=== PATIENT | female | born 1925 | race Caucasian/White ===

== ENCOUNTER 2016-09-17 00:33 | Inpatient (IN) | payer OTHER ==
[~2016-09-17] VITALS: Ht 157.5 cm; Wt 64.9 kg
--- NOTE | ~2016-09-17 | DEA ---
[facility] [place] [address] [place] [address] SUMMARY Name: LETA CORDOBA Room #: 453-P [facility] IN M.R.#: [id number] Admission: 09/17/16 Attend Phys: Stewart Branham DO Discharge: 09/20/16 Date of : [birth year] Report #: [id number] THIS REPORT FOR: //name// CC: Stewart Reynolds MD DATE OF SERVICE: 09/20/2016 DATE OF ADMISSION: 09/17/2016. DATE OF : 09/20/2016. SIGNIFICANT FINDINGS AND TREATMENT RENDERED: The patient is an 89-year-old white female who was admitted through the emergency department with acute respiratory failure. She had chronic pleural effusions and COPD. She had chronic atrial fibrillation. She did have leukocytosis on this admission, some of which may have been associated with steroids. She did have a thoracentesis with right-sided chest tube placement, but had bibasilar infiltrates, atelectasis and pleural effusions despite this intervention and was poorly responsive toward the end of her life. She did start to improve. Steroids were initially started to taper, but she did on 09/20/2016. 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 OPERATIONS AND PROCEDURES: Thoracentesis with chest tube placement. CONSULTATIONS: With Dr. Jurado and Dr. Reynolds. Appropriate arrangements were made for disposition of the remains and condolences to the family. <ELECTRONICALLY SIGNED> By: Jason Hanks MD, NAVJOT, FACEP 11/14/16 [id number] [id number] Jason Hanks MD, NAVJOT, FACEP /nt
--- NOTE | ~2016-09-17 | H ---
[facility] [place] [address] HISTORY AND PHYSICAL Name: LETA CORDOBA Room #: 453-P [facility] IN M.R.#: [id number] Admission: 09/17/16 Attend Phys: Stewart Branham DO Discharge: 09/20/16 Date of : [birth year] Report #: [id number] THIS REPORT FOR: //name// CC: Stewart Stuart MD DATE OF SERVICE: 09/17/2016 ROOM NUMBER: #453. HISTORY OF PRESENT ILLNESS: This is an 89-year-old white female, who was admitted here on transfer from the emergency room at [facility], where she was sent because of increasing somnolence and shortness of breath. The patient had gone out to the office of Dr. Jurado, her dope pourer, two days ago and when she returned, she started seeming more somnolent. Yesterday, she was out of bed, but was not quite herself, seemed more short of breath and less responsive. It is worse in the last night and paramedics were called. Thought she might have been having a stroke, so presented to [facility] ER, where unfortunately, they did not have any bed opens for admission. At [facility], her pH was 7.24 and her pCO2 was 70. She was treated with bronchodilator therapy and steroids, and she had 1000 mL of pleural fluid removed from her right PleurX catheter, which she has had since last month. Since transfer here, she is more alert and awake according to her daughters. There was no history of nausea or vomiting. There is no dysuria, chest pain, arthritic pain, rash, falls or dysphagia. PAST MEDICAL HISTORY: She was hospitalized past year in July for atrial flutter, pneumonia, and pulmonary edema. She has had previous congestive heart failure, chronic atrial fibrillation, type 2 diabetes, peripheral vascular disease, pulmonary hypertension, aortic stenosis, normal pressure hydrocephalus, suspected, but spinal tap was never done, carotid stenosis, pulmonary emboli, vascular stents in her legs. Previous blood loss anemia, kidney stones with lithotripsy in 1984. MEDICATIONS ON ADMISSION: Nexium 40 mg daily, Atrovent HFA 2 puffs q.i.d., ProAir HFA 2 puffs q.i.d., Brovana 15 mcg b.i.d., Xopenex q. 6 hours p.r.n., Eliquis 5 mg b.i.d., amiodarone 100 mg daily, fish oil 1000 mg b.i.d., Verapamil SR 240 mg daily, zinc 50 mg daily, calcium with vitamin D twice a day. ALLERGIES: None definite. Even though chart says PENICILLIN, daughter has denied this. on admission, Lasix 20 mg twice a week, budesonide 0.5 mg b.i.d., b.i.d., Singulair 10 mg daily, guaifenesin 600 mg b.i.d., metformin [address] [address] HISTORY AND PHYSICAL Name: LETA CORDOBA Room #: 453-P [facility] IN M.R.#: [id number] Admission: 09/17/16 Attend Phys: Stewart Branham DO Discharge: 09/20/16 Date of : [birth year] Report #: [id number] b.i.d., ascorbic acid 1000 mg b.i.d., Krill oil 1 daily, red yeast rice 2 tablets b.i.d., Coenzyme Q 200 mg b.i.d., chlorella 200 mg 4 tablets q.i.d. REVIEW OF SYSTEMS: She lives with her daughter. She is able to carry out walks with a walker. Usually has good appetite, and in fact, ate a good breakfast earlier today. She sees Dr. Cal Stuart regularly. It was his recommendation to put in the PleurX catheter, and the daughter has been draining out 1000 mL of urine, anywhere from every other day to every 5 days. PHYSICAL EXAMINATION: GENERAL: An elderly white female with her eye is open, responding to me. VITAL SIGNS: BP 149/90, pulse 95, respiration 18, temp afebrile. HEAD: No rash or trauma. EARS, NOSE, AND THROAT: There is no lesions. EYES: No icterus. NECK: Supple. LUNGS: Decreased breath sounds in the right base. No wheezes or rhonchi. HEART: Rhythm irregular, but rate controlled. ABDOMEN: Soft and nontender. EXTREMITIES: Puffy without significant edema. No cellulitis. NEUROLOGIC: She is alert and responsive. Complete mental status exam is not taken at this time. There were no lateralized deficits. LABORATORY DATA: Portable chest x-ray shows right basilar infiltrate and small effusion and slightly worsening diffuse prominence of the interstitium, probably chronic changes. Urinalysis is not back. IMPRESSION: 1. Increasing somnolence, hypercarbia, and respiratory failure. 2. Extensive lung disease. 3. Pleural effusion. 4. Chronic atrial fibrillation. 5. Possible normal pressure hydrocephalus. 6. Type 2 diabetes. PLAN: Low dose IV steroids. Continue outpatient regime. Ask Cardiology and Pulmonary to see for recommendations. Follow up chest x-ray, low dose IV fluids initially. Physical therapy evaluation. PROGNOSIS: Guarded. <ELECTRONICALLY SIGNED> By: Stewart Branham DO 09/25/16 1604 [id number] [id number] Stewart Branham DO /nt
--- NOTE | ~2016-09-17 | HC ---
[facility] [place] [address] CONSULTATION Name: LETA CORDOBA Room #: 453-P [facility] IN M.R.#: [id number] Admission: 09/17/16 Attend Phys: Stewart Branham DO Discharge: 09/20/16 Date of : [birth year] Report #: [id number] THIS REPORT FOR: //name// CC: Stewart Hanks DATE OF SERVICE: 09/17/2016 PRIMARY CARE PHYSICIAN: Jason Hanks M.D. REFERRAL PHYSICIAN: Stewart Branham M.D. REASON FOR REFERRAL: Acute respiratory distress. HISTORY OF PRESENT ILLNESS: The patient is an 89-year-old white female who is well known to the physician, presents with increasing hypersomnolence and dyspnea. A pulmonary consultation was requested. The patient has known severe COPD. She is normally on nebulized Pulmicort and Brovana. She has chronic hypoxic respiratory failure requiring 3 liters of O2. She was last hospitalized in [facility] on May 2016. The patient was in her usual state of health until a few days ago. She had developed progressive hypersomnolence. She was felt to have altered mental status along with increasing dyspnea. She was brought to [facility] Emergency Room. [facility] was full. She was transferred to [facility] for further evaluation. At [facility] her arterial blood gas revealed pH 7.24, pCO2 of 70. Currently, she is more awake, complained of back pain. Otherwise, she denies any chest pain, productive cough. There is no recent febrile illness, nausea, vomiting or diarrhea. PAST MEDICAL HISTORY: Notable for COPD, severe impairment, chronic hypoxic respiratory failure requiring 3 liters of O2, obstructive sleep apnea on BiPAP, peripheral vascular disease, nephrolithiasis, diabetes mellitus type 2, allergic rhinitis. MEDICATIONS: Reviewed. ALLERGIES: PENICILLIN. Reactions not specified. FAMILY HISTORY: Noncontributory. SOCIAL HISTORY: The patient has smoked, but quit many years ago. Currently, [facility] [address] [place] [address] CONSULTATION Name: LETA CORDOBA Room #: 453-P [facility] IN M.R.#: [id number] Admission: 09/17/16 Attend Phys: Stewart Branham, Discharge: 09/20/16 Date of : [birth year] Report #: [id number] she lives with her daughter who gives her 24 hour care. REVIEW OF SYSTEMS: As mentioned above, otherwise 10-point system review negative. PHYSICAL EXAMINATION: GENERAL: She is awake and alert in moderate distress due to pain and dyspnea. VITAL SIGNS: Temperature is 97 degrees Fahrenheit, pulse is 70, respiratory rate is 24, blood pressure 127/70 mmHg, saturation 92% on supplemental O2. HEENT: Normocephalic, atraumatic. NECK: Supple without any lymphadenopathy or thyromegaly. CHEST: Breath sounds are decreased bilaterally with mild expiratory wheezes. CARDIOVASCULAR: Heart sounds are distant. No obvious murmurs or gallop. ABDOMEN: Soft, nontender, no organomegaly or masses felt. GENITOURINARY: Deferred. RECTAL: Deferred. EXTREMITIES: No cyanosis, clubbing or edema. LABORATORY DATA: Chest x-ray shows chronic infiltrates involving the right base. Infiltrates appears to be more prominent on today's examination. Electrolytes are unremarkable except for potassium 5.3, creatinine is 1.1, hemoglobin is 11.0, WBC 12,000. IMPRESSION: 1. Progressive hypersomnolence and dyspnea in this 89-year-old white female probably secondary to exacerbation of chronic obstructive pulmonary disease. 2. Slightly increase in infiltrates, possible pneumonia. This would include possible aspiration. 3. Chronic obstructive pulmonary disease with exacerbation, severe impairment. 4. Chronic hypoxic respiratory failure patient is on 3 liters of O2 chronically. 5. Chronic infiltrates, but this has been followed in the past. 6. Permanent atrial fibrillation. 7. Progressive debility and weakness. 8. Chronic back pain due to osteoarthritis involving the lower back. RECOMMENDATION: We will start corticosteroids and bronchodilators along with broad spectrum antibiotics. Would try to keep saturation around 88-90% if possible. DVT and GI prophylaxis will be addressed. Thank you for this consultation. <ELECTRONICALLY SIGNED> By: Harvey Reynolds MD 09/22/16 1634 [id number] Harvey Reynolds MD /nt
[~2016-09-17 00:33] MED LIST: ABREVA2 GM TOP; ACCUCHECK; ACETAMINOPHEN325 M1 PO; ACTOS15 MG; ADULT LOW DOSE81 MG PO; ALBUTEROL2.5 MG/0.1 IH; ALBUTEROL2.5 MG/0.5 INH; ASPIRIN300 MG PO; ATIVAN0.5 MG PO; ATROVENT HFA14 GM INH; AVELOX 400 MG400 MG; BROVANA15 MCG/2 M IH; BROVANA15 MCG/2 M INH; BUDESONIDE0.5 MG/2 M IH; CAL MA PLUS PO; CALAN SR240 MG PO; CALCITRATE200 MG; CALCIUM CITRAT1 EAC7 PO; CHLORELLA PO; CLOTRIMAZOLE-BE30 M1 TOP; CO Q-10200 MG; COQ-10100 MG PO; COUMADIN 4 MG TA4 M1; DHEA25 MG; ELIQUIS5 MG PO; FISH OIL 1,001000 M2 PO; FISHOIL PO; GUAIFENESIN400 MG PO; K-DUR 20 MEQ T20 MEQ; LASIX 20 MG TAB20 MG; LASIX 20 MG TAB20 MG PO; LIPITOR10 MG PO; LUTEIN-ZEAXANT1 EACH PO; MAG DELAY64 MG; MEGARED OMEGA-1 EAC1 PO; METFORMIN HCL500 MG PO; MUCINEX600 MG; MULTI-VITAMIN1 EAC1; NAMENDA 5 MG TAB5 M1 PO; NEXIUM40 MG; NEXIUM40 MG PO; NOVOLOG100 UNIT/1 SQ; OMEGA-31000 MG; PACERONE 200 M200 M1 PO; PLAVIX 75 MG TA75 M1 PO; PRAVACHOL40 MG PO; PREDNISONE 5 MG5 M1 PO; PROAIR HFA8.5 GM PO; PROAIR RESPICL90 MCG INH; PROTANDIN; PROTONIX40 M1 PO; PROVENTIL IH; PROVENTIL17 G1 IH; PULMICORT0.5 MG/22 INH; RED YEAST RICE600 MG; RED YEAST RICE600 MG PO; RESPIMAT INH; SINGULAIR 10 MG10 M1 PO; SPIRIVA INH; TYLENOL325 MG PO; VITAMINC500 PO; XANAX 0.25 MG0.25 MG; XOPENEX 0.63 MG/3 M1 INH; ZINC CHELATE50 MG PO; ZOLOFT 50 MG TA50 M1; [UNRECOGNIZED DRUG - CODE]; [UNRECOGNIZED DRUG - OTHER] PO
[2016-09-17] MEDS ORDERED: AMIODARONE HCL100 MG PO (01:39)
[2016-09-17 02:21] VITALS: BP 155/65
[2016-09-17 03:24] VITALS: BP 164/58
[2016-09-17 08:10] VITALS: BP 149/90
[2016-09-17 12:30] VITALS: BP 145/54
[2016-09-17 16:00] VITALS: BP 148/89
[2016-09-17 20:00] VITALS: BP 139/37
[2016-09-17 22:46] LABS: CALCIUM 8.5 mg/dL (8.5-10.1); CREATININE 1.1 mg/dL (0.6-1.3); MAGNESIUM 1.6 mg/dL (1.8-2.4); POTASSIUM 5.3 mmol/L (3.5-5.1)
[2016-09-18 05:53] LABS: HEMATOCRIT 36.3 % (37.0-47.0); MCH 26.5 pg (26.0-34.0); MCHC 30.5 % (28.0-37.0); MCV 86.9 fL (80.0-100.0); PLATELET COUNT 527 thou/uL (150-400); RBC 4.17 mil/uL (4.20-5.00); RDW 17.3 % (10.5-14.5); WBC 12.6 thou/uL (4.0-11.0)
[2016-09-18 06:10] LABS: CALCIUM 9.1 mg/dL (8.5-10.1); CREATININE 1.1 mg/dL (0.6-1.3); POTASSIUM 5.4 mmol/L (3.5-5.1)
[2016-09-18 06:25] LABS: MANUAL DIFF YES
[2016-09-18 07:39] LABS: ABSOLUTE NEUTROPHILS 11.6 thou/uL (1.4-8.2); ANISOCYTOSIS 1+; TOTAL CELL COUNT 100
[2016-09-18 07:50] VITALS: BP 161/78
[2016-09-18 15:25] VITALS: BP 125/31
[2016-09-18 19:30] VITALS: BP 146/44
[2016-09-19 02:53] VITALS: BP 148/79
[2016-09-19 06:19] LABS: ABSOLUTE NEUTROPHILS 11.4 thou/uL (1.4-8.2); BASOPHILS 0.1 % (0.0-2.0); HEMATOCRIT 32.5 % (37.0-47.0); HEMOGLOBIN 9.9 gm/dL (12.0-15.0); LYMPHOCYTES 2.7 % (24.0-44.0); MCH 26.3 pg (26.0-34.0); MCHC 30.5 % (28.0-37.0); MCV 86.2 fL (80.0-100.0); MONOCYTES 1.5 % (1.0-8.0); POLYS 95.7 % (36.0-66.0); RBC 3.78 mil/uL (4.20-5.00); RDW 17.3 % (10.5-14.5); WBC 11.9 thou/uL (4.0-11.0)
[2016-09-19 06:22] LABS: PLATELET COUNT 444 thou/uL (150-400)
[2016-09-19 06:23] LABS: MANUAL DIFF NO
[2016-09-19 06:35] LABS: ALBUMIN 2.8 g/dL (3.4-5.0); CALCIUM 8.7 mg/dL (8.5-10.1); CREATININE 1.3 mg/dL (0.6-1.3); POTASSIUM 5.6 mmol/L (3.5-5.1); TOTAL BILIRUBIN 0.3 mg/dL (<0.1-1.0); TOTAL PROTEIN 6.1 g/dL (6.4-8.2)
[2016-09-19 08:00] VITALS: BP 158/55
[2016-09-19 17:25] VITALS: BP 153/47
[2016-09-20 03:36] VITALS: BP 158/76
[2016-09-20 08:00] VITALS: BP 153/90
[2016-09-20 15:07] LABS: AMIODARONE 1.9 ug/mL (1.0-2.5); DES-AMIODARONE 0.7 ug/mL (1.0-2.5)
[2016-09-20 15:54] VITALS: BP 146/52
== END 2016-09-20 18:20 | DRG 177 ==
LOC: 4W 00:33
PROVIDERS: Family Medicine; Internal Medicine; Internal Medicine Pulmonary Disease
PROC: 05HC33Z Insertion of Infusion Device into Left Basilic Vein, Percutaneous Approach (ICD-10-PCS; principal; 2016-09-19)
PROC: B54NZZA Ultrasonography of Left Upper Extremity Veins, Guidance (ICD-10-PCS; 2016-09-19)
DX: J69.0 Pneumonitis due to inhalation of food and vomit (principal); J96.21 Acute and chronic respiratory failure with hypoxia; G92 Toxic encephalopathy; J96.22 Acute and chronic respiratory failure with hypercapnia; I48.92 Unspecified atrial flutter; J90 Pleural effusion, not elsewhere classified; J44.1 Chronic obstructive pulmonary disease with (acute) exacerbation; I50.9 Heart failure, unspecified; I48.2 Chronic atrial fibrillation; E11.51 Type 2 diabetes mellitus with diabetic peripheral angiopathy without gangrene; I27.2 Other secondary pulmonary hypertension; I35.0 Nonrheumatic aortic (valve) stenosis; M48.00 Spinal stenosis, site unspecified; D72.829 Elevated white blood cell count, unspecified; G47.33 Obstructive sleep apnea (adult) (pediatric); G89.29 Other chronic pain; M54.9 Dorsalgia, unspecified; M19.90 Unspecified osteoarthritis, unspecified site; Z86.711 Personal history of pulmonary embolism; Z87.442 Personal history of urinary calculi; Z79.899 Other long term (current) drug therapy; Z88.0 Allergy status to penicillin; Z87.891 Personal history of nicotine dependence; Z79.4 Long term (current) use of insulin
CPT/HCPCS: 10045; 52295